=== PATIENT | female | born 1975 | race Caucasian/White ===

== ENCOUNTER → 2017-03-18 | Outpatient (REF) | payer OTHER, BC | LOC: M SFHCWAGY 11:21 | PROVIDERS: ATTEND Nurse Practitioner Women's Health | DX: Z12.4 Encounter for screening for malignant neoplasm of cervix (principal); Z12.39 Encounter for other screening for malignant neoplasm of breast ==

== ENCOUNTER → 2017-03-18 | Outpatient (CLI) | payer OTHER, BC ==
--- NOTE | 2017-03-18 12:21 | REPMRS ---
Patient History The patient states she had a clinical breast exam in 02/2017. No known family history of cancer. Digital Woman Screen Mammo: March 18, 2017 - Exam #: [id number] Bilateral CC and MLO view(s) were taken. Technologist: Bridgett Mast, Technologist Prior study comparison: January 15, 2016, digital woman screen mammo performed at [facility]. November 22, 2014, digital woman screen mammo performed at [facility] to [facility]. FINDINGS: There are scattered fibroglandular densities. There has been no change in the appearance of the mammogram from the prior studies. There is a mild amount of residual fibroglandular tissue which is fairly symmetric. There is no interval development of dominant mass, architectural distortion, or clustered microcalcification suggestive of malignancy. ASSESSMENT: BI-RADS/ACR category 1 mammogram. Negative. Recommendation Routine screening mammogram in 1 year (for women over age 40). This mammogram was interpreted with the aid of an FDA-approved computer-aided dectection system. Electronically Signed By: Mendoza Barroso MD 03/18/17 [id number]
== END ==
LOC: M WHC 11:19
PROVIDERS: ATTEND Nurse Practitioner Women's Health
DX: Z12.31 Encounter for screening mammogram for malignant neoplasm of breast (principal)

== ENCOUNTER → 2017-08-27 | Outpatient (REF) | payer OTHER, BC | LOC: M SFHCWAGY 13:21 | PROVIDERS: ATTEND Family Medicine | DX: Z11.3 Encounter for screening for infections with a predominantly sexual mode of transmission (principal) ==

== ENCOUNTER → 2018-02-14 | Outpatient (CLI) | payer OTHER ==
[2018-02-14 08:52] LABS: ALBUMIN 3.5 GM/DL (3.2-5.2); ALBUMIN/GLOBULIN RATIO 1.09 (1.00-1.93); ALKALINE PHOSPHATASE 46 U/L (45-117); ALT/SGPT 23 U/L (12-78); ANION GAP 6 MEQ/L (8-16); AST/SGOT 14 U/L (7-37); BILIRUBIN,TOTAL 0.6 MG/DL (0.2-1.0); BLOOD UREA NITROGEN 10 MG/DL (7-18); CALCIUM LEVEL 8.5 MG/DL (8.5-10.1); CARBON DIOXIDE LEVEL 27 MEQ/L (21-32); CHLORIDE LEVEL 109 MEQ/L (98-107); CHOLESTEROL LEVEL 189 MG/DL (<200); CHOLESTEROL RISK RATIO 3.315 (<5); FREE T4 0.93 NG/DL (0.76-1.46); GLOMERULAR FILTRATION RATE > 60.0 (>58); GLUCOSE, FASTING 90 MG/DL (70-100); HDL CHOLESTEROL 57 MG/DL (>40); LDL CHOLESTEROL 104.4 MG/DL (<100); NON-HDL-C 132 MG/DL; POTASSIUM SERUM 4.6 MEQ/L (3.5-5.1); SODIUM LEVEL 142 MEQ/L (136-145); TOTAL PROTEIN 6.7 GM/DL (6.4-8.2); TRIGLYCERIDES LEVEL 138 MG/DL (<150)
[2018-02-14 10:56] LABS: ESTIMATED AVERAGE GLUCOSE 108 MG/DL (60-110); HEMOGLOBIN A1c 5.4 %
== END ==
LOC: M LAB 07:50
DX: Z83.3 Family history of diabetes mellitus (principal); R63.5 Abnormal weight gain
CPT/HCPCS: 84443

== ENCOUNTER → 2018-06-28 | Outpatient (REF) | payer OTHER | LOC: M LAB REF 13:20 | DX: J02.9 Acute pharyngitis, unspecified (principal) ==

== ENCOUNTER 2018-11-05 13:16 | Emergency (ER) | payer OTHER ==
[~2018-11-05] VITALS: Ht 162.6 cm; Wt 94.5 kg
[2018-11-05] MEDS ORDERED: ACET500T15 PO (13:37)
[2018-11-05 17:00] VITALS: BP 138/84
[2018-11-05 18:47] LABS: CHLAMYDIA DNA AMPLIFICATION NEGATIVE (NEGATIVE); GC DNA AMPLIFICATION NEGATIVE (NEGATIVE)
--- NOTE | 2018-11-06 09:01 | REP ---
PELVIC ULTRASOUND: Real-time sonographic evaluation of the pelvis performed utilizing transabdominal and endovaginal technique. Bladder measures 10.3 x 3.7 x 9.2 cm. Uterus measures 9.0 x 5.2 x 6.0 cm. There is an anterior fibroid 2.4 x 2.3 x 3.1 cm. Endometrial thickness is 17 mm. Uterus is retroverted. There is a complex nabothian cyst in the cervix which measures 7 mm. Right ovary measures 4.3 x 1.6 x 2.0 cm and left ovary 3.3 x 1.4 x 1.8 cm. There is a complex dominant follicle in the right ovary 1.4 cm in diameter. There is a small amount of free fluid. There is no torsion of either ovary with duplex Doppler evaluation. IMPRESSION: Anterior uterine fibroid 3.1 cm in maximum diameter. Complex hemorrhagic dominant follicle right ovary 1.4 cm. No torsion. Small amount of free fluid. Electronically Signed by Mendoza Barroso MD 11/06/2018 06:50 P
== END 2018-11-05 17:01 | disposition home or self-care (01) ==
LOC: M ED 13:16
DX: D25.9 Leiomyoma of uterus, unspecified (principal); N83.01 Follicular cyst of right ovary; Z87.42 Personal history of other diseases of the female genital tract; Z87.891 Personal history of nicotine dependence

== ENCOUNTER → 2019-01-04 | Outpatient (CLI) | payer OTHER ==
[~2019-01-04] MED LIST: ACET500T15 PO
--- NOTE | 2019-01-04 16:04 | REPMRS ---
Patient History The patient states she had a clinical breast exam in 12/2018. No known family history of cancer. No Hormone Replacement Therapy Digital Woman Screen Mammo: January 04, 2019 - Exam #: [id number] Bilateral CC and MLO view(s) were taken. Technologist: Bridgett Mast, Technologist Prior study comparison: March 18, 2017, digital woman screen mammo performed at [facility]. January 15, 2016, digital woman screen mammo performed at [facility]. November 22, 2014, digital woman screen mammo performed at [facility]. FINDINGS: There are scattered fibroglandular densities. There has been no change in the appearance of the mammogram from the prior studies. There is a mild amount of scattered fibroglandular density which is fairly symmetric. There is no interval development of dominant mass, architectural distortion, or clustered microcalcification suggestive of malignancy. 3-D tomosynthesis shows no additional findings. Assessment: BI-RADS/ACR category 1 mammogram. Negative Mammogram. Recommendation Routine screening mammogram of both breasts in 1 year (for women over age 40). This patient's Lifetime Breast Cancer RIsk is estimated at 12.2 %. This mammogram was interpreted with the aid of an FDA-approved computer-aided dectection system. Electronically Signed By: Steven Garces MD 01/04/19 0100
== END ==
LOC: M WHC 14:11
PROVIDERS: ATTEND Nurse Practitioner Women's Health
DX: Z12.31 Encounter for screening mammogram for malignant neoplasm of breast (principal)

== ENCOUNTER 2019-05-22 09:43 | Day surgery (SDC) | payer OTHER ==
[~2019-05-22] VITALS: Ht 162.6 cm; Wt 94.5 kg
[2019-05-22] MEDS ORDERED: ZYRTTAB8 PO (09:50)
[2019-05-22] MEDS ORDERED: NS 1,000 ML IV ONE (10:15)
[2019-05-22] MEDS ORDERED: ONDANSETRON 4MG/2ML VIAL (J2405) IV ONE (10:30)
[2019-05-22] MEDS ORDERED: KETOROLAC 30 MG/ML VIAL (J1885) IV ONE (10:30)
[2019-05-22 10:38] LABS: BASO % 0.3 % (0.0-1.0); EOS # 0.1 10^3/uL (0.0-0.50); EOS % 0.8 % (0.0-3.0); HEMATOCRIT 42.4 % (36.0-47.0); HEMOGLOBIN 14.5 g/dl (12.0-15.5); MEAN CORPUSCULAR HEMOGLOBIN 32.3 pg (27.0-33.0); MEAN CORPUSCULAR HGB CONC 34.2 g/dl (32.0-36.5); MEAN CORPUSCULAR VOLUME 94.4 fl (80.0-96.0); MONO # 0.5 10^3/uL (0.0-0.8); MONO % 4.5 % (0.0-5.0); NEUTROPHILS # 8.5 10^3/uL (1.8-7.7); PLATELET COUNT, AUTOMATED 179 10^3/uL (150-450); RED BLOOD COUNT 4.49 10^6/uL (4.00-5.40); WHITE BLOOD COUNT 10.1 10^3/uL (4.0-10.0)
[2019-05-22 11:10] LABS: ALT/SGPT 17 U/L (12-78); BILIRUBIN,DIRECT 0.2 MG/DL (0.0-0.2); BILIRUBIN,TOTAL 0.5 MG/DL (0.2-1.0); BLOOD UREA NITROGEN 15 MG/DL (7-18); CALCIUM LEVEL 9.3 MG/DL (8.5-10.1); CARBON DIOXIDE LEVEL 25 MEQ/L (21-32); CHLORIDE LEVEL 105 MEQ/L (98-107); CREATININE FOR GFR 0.91 MG/DL (0.55-1.30); GLOMERULAR FILTRATION RATE > 60.0 (>58); GLUCOSE, FASTING 101 MG/DL (70-100); LIPASE 102 U/L (73-393); POTASSIUM SERUM 4.3 MEQ/L (3.5-5.1); SODIUM LEVEL 139 MEQ/L (136-145); TOTAL PROTEIN 7.2 GM/DL (6.4-8.2)
[2019-05-22] MEDS ORDERED: NS 1,000 ML IV SCH (13:00)
[2019-05-22] MEDS ORDERED: ceFAZolin 2 GM/D5W 50 ML IV BAG (J0690 PER 500MG) As Ordered ONE (18:26)
[2019-05-22] MEDS ORDERED: fentaNYL 250 MCG/5 ML INJECTION (J3010) As Ordered ONE (18:36)
[2019-05-22] MEDS ORDERED: MIDAZOLAM INJ 2 MG/2 ML VIAL (J2250) As Ordered ONE (18:37)
[2019-05-22] MEDS ORDERED: LIDOCAINE 2% INJ 100 MG/5 ML SDV (FOR ANES.) As Ordered ONE ×3 (18:39→20:16)
[2019-05-22] MEDS ORDERED: PROPOFOL 200 MG/20 ML VIAL As Ordered ONE (18:39)
[2019-05-22] MEDS ORDERED: ROCURONIUM BROMIDE 50 MG/5 ML VIAL As Ordered ONE ×2 (18:40→20:16)
--- NOTE | 2019-05-22 18:44 | HPEPDOC ---
General Surgery H&P Date of Admission May 22, 2019 Attending Physician: ERMIAS GRIDER MD History and Physical CHIEF COMPLAINT: Right groin bulge with pain HISTORY OF PRESENT ILLNESS: Patient is a relatively healthy 43-year-old male who is known for about a past 6 months that she has a femoral hernia and intermitt ently bulges out on her right groin. Most the time she was just rest and lay down and this would spontaneously reduced back. In between his episodes patient feels normal. This episode started early this morning while she was ready for work. She felt the bulge, once more after minimal effort and this would not reduce back in. This was accompanied by pain in the groin area and a couple episodes of vomiting. She then presented herself to the emergency room. While in the ER patient felt better with the bulging decreasing in size but remaining there despite laying down and resting. She denies any further nausea, vomiting, abdominal distention. At the time that I saw her the bulging remains but she reports that the discomfort has improved. No prior episodes of repair. ALLERGIES: Please see below. HOME MEDICATIONS: Please see below. PAST MEDICAL HISTORY: 1. Asthma PAST SURGICAL HISTORY: 1. Laparoscopic cholecystectomy PERSONAL/SOCIAL HISTORY: Denies smoking, alcohol use, or recreational drug use. REVIEW OF SYSTEMS: GENERAL: Patient on her usual state of health prior to the episodes starting this morning. HEENT: Denies blurred vision and double vision. Denies ear symptoms. Denies hoarseness. NECK: Denies any neck pain. CARDIOVASCULAR: Denies chest pain and palpitations. MUSCULOSKELETAL: Denies arthralgias, back pain and thrombophlebitis. SKIN: Denies rash. NEUROLOGIC: Denies headache, stroke and transient ischemic attack. PSYCHIATRIC: Denies anxiety and depression. ENDOCRINE: Denies thyroid disease. HEMATOLOGY/ONCOLOGY: Denies any bleeding or clotting disorder. HEART: Denies any chest pains, palpitations, paroxysmal dyspnea, orthopnea. PULMONARY: Denies chronic cough, dyspnea and wheezing. GASTROINTESTINAL: Denies rectal bleeding, family history of colon cancer, const ipation, diarrhea, dysphagia, heartburn and jaundice. GENITOURINARY: Denies dysuria, frequency, hematuria and nocturia. ENDOCRINE: Denies polydipsia, polyphagia, polyuria, heat or cold intolerance. INFECTIOUS: Denies any recent upper respiratory tract infection, UTI, need for use of antibiotics. NUTRITION: Reports good appetite. PHYSICAL EXAMINATION: VITAL SIGNS: Please see below. GENERAL APPEARANCE: Minimally uncomfortable with movement but uncomfortable laying down flat in bed. She was able to sit up on the bed with minimal discomfort.. Awake, alert, oriented. HEENT: Normocephalic, atraumatic. [place] palpebral conjunctivae. Anicteric sclerae. Lips moist. CHEST: No chest wall abnormalities. Normal respiratory motion/effort. NECK: Supple. No thyromegaly. No lymphadenopathies. LUNGS: Lung sounds are clear to auscultation bilaterally. No wheezing appreciated. HEART: No chest wall abnormalities. Heart rate and rhythm are regular with no murmurs. ABDOMEN: Abdomen is obese, soft, nondistended. She has a non-small bulging towards the lower edge of the right groin crease at the line of the inguinal crease on the medial side consistent with a femoral hernia. The herniating component is not reducible. The overlying skin does not show any erythema. Subcutaneous tissue does not show any gross induration or swelling. Patient is minimally uncomfortable with manipulation.. SKIN: Warm, moist. EXTREMITIES: Extremities have no deformities. No edema identified. NEUROLOGICAL: . ANCILLARIES: . LABORATORY DATA: Please see below. MICROBIOLOGY: Please see below. IMAGING: Pelvic ultrasound Right femoral hernia containing a loop of bowel IMPRESSION AND PLAN: Incarcerated right femoral hernia Patient reports improvement but the bulging still remains. On examination she does have a right femoral hernia in this is not reducible. She is minimally tender on palpation. There are no overlying skin changes nor signs of subcutaneous swelling outpatient looks only minimally uncomfortable thus a think this may be incarcerated though no signs of strangulation at this time. Given that there is a piece of bowel in this is a femoral hernia, high likelihood that there is a narrow neck and reduced may escalate into strangulation this I recommend emergent repair of the hernia in reduction of the herniating bowel. I discussed with her different options for repair. Given that there is involvement of bowel, and recommend performing this laparoscopically. I have inquired in the operating room for the availability of the da Hiren robot and since this is available we will use his stool which I think would provide a superior repair via transabdominal preperitoneal approach. Placement of mesh will depend upon whether we need to resect the involved bowel or not. If bowel is resected, he may need to hold off lasing the mesh and either perform a primary repair or do a temporary repair and planned for a more definite repair when she is fully recovered in a few weeks. Consent was obtained from the patient after full discussion of risks and benefits of performing a laparoscopic femoral hernia repair. Vital Signs Vital Signs Date Time Temp Pulse Resp B/P (MAP) Pulse Ox O2 Delivery O2 Flow Rate FiO2 05/22/19 17:06 97.8 60 18 142/82 (102) 98 Room Air Laboratory Data Labs 24H Laboratory Tests 2 05/22/19 10:24: Immature Granulocyte % (Auto) 0.4, White Blood Count 10.1H, Red Blood Count 4.49, Hemoglobin 14.5, Hematocrit 42.4, Mean Corpuscular Volume 94.4, Mean Corpuscular Hemoglobin 32.3, Mean Corpuscular Hemoglobin Concent 34.2, Red Cell Distribution Width 12.2, Platelet Count 179, Neutrophils (%) (Auto) 84.0H, Lymphocytes (%) (Auto) 10.0L, Monocytes (%) (Auto) 4.5, Eosinophils (%) (Auto) 0.8, Basophils (%) (Auto) 0.3, Neutrophils # (Auto) 8.5H, Lymphocytes # (Auto) 1.0L, Monocytes # (Auto) 0.5, Eosinophils # (Auto) 0.1, Basophils # (Auto) 0.0, Nucleated Red Blood Cells % (auto) 0.0, Urine Color YELLOW, Urine Appearance HAZY, Urine pH 6.0, Urine Specific [place] 1.019, Urine Protein NEGATIVE, Urine Glucose (UA) NEGATIVE, Urine Ketones NEGATIVE, Urine Blood NEGATIVE, Urine Nitrite NEGATIVE, Urine Bilirubin NEGATIVE, Urine Urobilinogen 0.2, Urine Leukocyte Esterase TRACEH, Urine WBC (Auto) 3, Urine RBC (Auto) 0, Urine Hyaline Casts (Auto) 0, Urine Bacteria (Auto) 1+H, Urine Squamous Epithelial Cells 3, Urine Sperm (Auto) , Anion Gap 9, Glomerular Filtration Rate > 60.0, Calcium Level 9.3, Aspartate Amino Transf (AST/SGOT) 10, Alanine Aminotransferase (AL T/SGPT) 17, Alkaline Phosphatase 55, Total Bilirubin 0.5, Direct Bilirubin 0.2, Total Protein 7.2, Albumin 4.0, Albumin/Globulin Ratio 1.25, Lipase 102 05/22/19 10:34: POC Beta HCG, Quantitative < 5.0 CBC/BMP Laboratory Tests 05/22/19 10:24 Red Blood Count 4.49, Mean Corpuscular Volume 94.4, Mean Corpuscular Hemoglobin 32.3, Mean Corpuscular Hemoglobin Concent 34.2, Red Cell Distribution Width 12.2, Neutrophils (%) (Auto) 84.0 H, Lymphocytes (%) (Auto) 10.0 L, Monocytes (%) (Auto) 4.5, Eosinophils (%) (Auto) 0.8, Basophils (%) (Auto) 0.3, Neutrophils # (Auto) 8.5 H, Lymphocytes # (Auto) 1.0 L, Monocytes # (Auto) 0.5, Eosinophils # (Auto) 0.1, Basophils # (Auto) 0.0 Microbiology Microbiology 05/22/19 Urine Culture, Received Pending Home Medications Miscellaneous Medications Cetirizine HCl/Pseudoephedrine (Zyrtec-D Tablet) 1 Each Tab.er.12h, 1 TAB PO, (Reported) Allergies Coded Allergies: No Known Allergies (Unverified , 05/22/19) A-FIB/CHADSVASC A-FIB History Current/History of A-Fib/PAF?: No Current PO Anticoag Therapy: No ERMIAS GRIDER MD May 22, 2019 18:44
[2019-05-22] MEDS ORDERED: LIDOCAINE 1% SDV INJ 30 ML VIAL As Ordered ONE (18:48)
[2019-05-22] MEDS ORDERED: BUPIVACAINE HCL 0.25% 30 ML VIAL As Ordered ONE (18:48)
[2019-05-22] MEDS ORDERED: dexameTHASONE 4 MG/ML 1ML VIAL (J1100) As Ordered ONE (19:35)
[2019-05-22] MEDS ORDERED: KETAMINE HCL 200 MG/20 ML VIAL As Ordered ONE (20:00)
[2019-05-22] MEDS ORDERED: ACETAMINOPHEN 1000MG 100ML IV BTL (OFIRMEV) (J0131 PER 10MG) As Ordered ONE (20:17)
[2019-05-22] MEDS ORDERED: SUGAMMADEX SODIUM 500 MG/5 ML VIAL (BRIDION) As Ordered ONE (20:24)
[2019-05-22] MEDS ORDERED: ONDANSETRON 4MG/2ML VIAL (J2405) As Ordered ONE (20:24)
[2019-05-22] MEDS: LR 1,000 ML IV SCH ×2 (21:40→22:34)
[2019-05-22] MEDS ORDERED: fentaNYL 100 MCG/2 ML INJECTION (J3010) IV PRN (22:00)
[2019-05-22] MEDS ORDERED: PERCOCET 5MG/325MG TAB PO PRN (22:00)
[2019-05-22] MEDS ORDERED: HYDROMORPHONE HCL 0.5 MG/ 0.5 ML SYRINGE (J1170 PER 1) IV PRN (22:00)
[2019-05-22] MEDS ORDERED: ONDANSETRON 4MG/2ML VIAL (J2405) IV PRN (22:00)
[2019-05-22 22:37] VITALS: BP 135/83
[2019-05-22 23:13] VITALS: BP 135/84
[2019-05-23 00:35] VITALS: BP 124/80
[2019-05-23] MEDS: LR 1,000 ML IV SCH ×2 (00:36→07:48)
[2019-05-23] MEDS: AMPICILLIN SOD/SULBACTAM SOD 3 GM in D5W MINI-BAG PLUS 100 ML IV SCH ×2 (00:36→06:20)
[2019-05-23 01:22] VITALS: BP 136/85
[2019-05-23 02:15] VITALS: BP 136/84
[2019-05-23 03:15] VITALS: BP 134/82
--- NOTE | 2019-05-23 06:10 | ROOPDOC ---
[facility] Report Of Operation Report of Operation DATE OF PROCEDURE: 05/22/19 PREPROCEDURE DIAGNOSES: incarcerated right femoral hernia. POSTPROCEDURE DIAGNOSES: incarcerated right femoral hernia. PROCEDURE: Robotic assisted laparoscopic repair of right femoral hernia. intraoperative evaluation of bowel perfusion with ICG, firefly. SURGEON: Rocky Samano MD CONCRETE SMOOTHER: ANESTHESIA: General Anesthesia. ESTIMATED BLOOD LOSS: Approximately 20 mL. COMPLICATIONS: none. PROCEDURE NOTE: The incarcerated bowel has self reduced. I think even before she was brought to the OR. There was evident serosal erythema. I watched it for about 5 minutes and used ICG to determine viability. It lit up well with firefly, and after observation was showing peristalsis.. DESCRIPTION OF PROCEDURE: Patient received Unasyn 3 gm IV preoperatively for wound prophylaxis, possible need for bowel resection. Patient was brought to the operating room, placed supine on the operating table. Compression boots placed in both lower extremities for DVT prophylaxis. After adequate general anesthesia started, A houser catheter placed without difficulty. His abdomen and groin/pelvic area then prepped and draped in the usual sterile fashion. We paused for a surgical timeout using both pre-incision safety checklist to verify correct patient, procedure site and additional clinical information prior to beginning the procedure. Entry to the abdomen done through a small incision a couple of cms above umbilical skin cleft. A Veress needle is inserted on a controlled fashion. CO2 insufflation started to pressure 15 mmHg. Using the same incision a 5 mm Visiport was then placed under direct vision of laparoscope. The insertion site was inspected for injury and none was found. Patient was then positioned on 10 Trendelenburg position with the symptomatic (right) side tilted upwards for adequate view of the hernia defect. 2 working ports placed to the right and left of the abdomen along the same line. The Xi da Hiren robot tower was positioned and the trochars docked onto the robot. 13 years we will bring 1% versus again as she is a lateral to what she is a is a week is as he is now radiating to the procedure is as he is admitted is I then unscrubbed and took control of the camera and the laparoscopic instruments at the surgeon's console. I used a Forced Bipolar is forceps with bipolar cautery on the left arm and A harsha-cut laparoscopic scissor with unipolar cautery in right arm. On Diagnostic laparoscopy, the bowel was incarcerated in the femoral hernia was noted free and apparently self reduced. I think this happened even before the surgery as she has reported improvement of her discomfort and I saw her in the emergency room. The bowel was noted to be bruised, mildly swollen. There is roughly about 8-10 cm piece of bowel that looked like this. Rest of the bowel appears pink and healthy. The antimesenteric portion appears bruised but the mesenteric portion is healthy in appearance. I used ICG and had anesthesia give him 5 mg or 2 mL of ICG intravenously. By using firefly and noted adequate perfusion going into the bruised portion of the bowel. After a couple of minutes of observation, this portion is also peristalsing. There is a small amount of serous sanguinous fluid in the pelvis. There is a small opening to the femoral canal on the right side with swollen preperitoneal tissue surrounding it. The peritoneum was opened up roughly about 5 cm above the internal opening of the inguinal hernia starting at the medial umbilical ligament going laterally towards the level of the anterior superior iliac spine. This was then dissected mostly bluntly away from the abdominal wall staying at the preperitoneal plane and posterior rectus plane medially. The round ligament at the right side was parietalized. On approaching the bulky and swollen preperitoneal tissue surrounding the femoral hernia and this was reduced away from the femoral opening. The loose areolar tissue around the area was also reduced back to the preperitoneal plane. Upon reduction of the peritoneal lining as well as the preperitoneal fat tissue there was some egress of serous fluid from the femoral canal. We extended the preperitoneal dissection beyond the midline as well as deep into the pelvis close to the opening of the obturator canal to be able to get adequate mesh overlap inferiorly. The space behind the bladder as well as the space of [place] was dissected fully and the intervening peritoneal bridge was also taken down. Once an adequate preperitoneal space was dissected, a check for hemostasis. I came back again to the small bowel and again had anesthesia inject her 2 mL of ICG. The bowels appear pinker now and clearly is peristalsing. There was no worsening of the bruising at the antimesenteric wall and clearly no necrosis or tanning of the small bowel. I chose a Parietex [employer] self fixating mesh (15 x 10 cm). This was folded and placed in the preperitoneal plane centered just medial to the inferior epigastric vessels and placed much lower 12 adequate inferior overlap to cover the femoral hernia opening. This was flattened against the abdominal wall and the pubic bone. After careful placement of the mesh, the peritoneal opening was then closed with a running suture of 2-0V LOC suture. As the hernia sac was long and redundant I incorporated the hernia sac into the closure of the peritoneum. I then surveyed the abdomen and pelvis for any signs of injury. Once satisfied I scrubbed back in. The instruments were removed. The abdomen was deflated. All ports were removed. The skin incisions were closed with 4-0 Monocryl in subcuticular fashion. The incisions were covered with Dermabond. The port sites were again infiltrated with local anesthesia. An ilioinguinal nerve block was also performed. Patient was promptly awakened, extubated and brought to the recovery room stable ROCKY SAMANO MD May 23, 2019 06:10
--- NOTE | 2019-05-23 06:14 | REP ---
RIGHT INGUINAL ULTRASOUND: Real-time sonographic evaluation of the right inguinal region performed. There is a right femoral hernia. The defect is approximately 2 cm in diameter. The hernia sac contains peristalsing bowel as well as mild to moderate fluid. It is not reducible. Electronically Signed by Mendoza Barroso MD 05/23/2019 11:48 P
[2019-05-23 06:16] LABS: BASO % 0.1 % (0.0-1.0); HEMATOCRIT 36.9 % (36.0-47.0); HEMOGLOBIN 12.7 g/dl (12.0-15.5); LYMPH # 0.7 10^3/uL (1.5-4.5); LYMPH % 7.3 % (24.0-44.0); MEAN CORPUSCULAR HEMOGLOBIN 31.8 pg (27.0-33.0); MEAN CORPUSCULAR HGB CONC 34.4 g/dl (32.0-36.5); MEAN CORPUSCULAR VOLUME 92.3 fl (80.0-96.0); MONO # 0.2 10^3/uL (0.0-0.8); MONO % 2.6 % (0.0-5.0); NEUTROPHILS # 8.4 10^3/uL (1.8-7.7); NEUTROPHILS % 89.7 % (36.0-66.0); PLATELET COUNT, AUTOMATED 172 10^3/uL (150-450); WHITE BLOOD COUNT 9.4 10^3/uL (4.0-10.0)
[2019-05-23 06:44] LABS: BLOOD UREA NITROGEN 7 MG/DL (7-18); CALCIUM LEVEL 8.7 MG/DL (8.5-10.1); CARBON DIOXIDE LEVEL 23 MEQ/L (21-32); CHLORIDE LEVEL 111 MEQ/L (98-107); CREATININE FOR GFR 0.71 MG/DL (0.55-1.30); GLOMERULAR FILTRATION RATE > 60.0 (>58); GLUCOSE, FASTING 137 MG/DL (70-100); POTASSIUM SERUM 4.3 MEQ/L (3.5-5.1); SODIUM LEVEL 138 MEQ/L (136-145)
[2019-05-23 07:17] VITALS: BP 129/79
--- NOTE | 2019-05-23 10:31 | IPNPDOC ---
Subjective General Date/Time Seen The patient was seen on 05/23/19 at 10:29. Subject Chief Complaint/History The patient is a 43-year-old female admitted with a reason for visit of Incarcerated Rt Femoral Hernia. Pt had emergent laparoscopic femoral hernia repair last night. Bowels were in the defect but actually self reduced prior to the surgery. She reports being comfortable with minimal discomfort, No nausea, bloating. She is voiding well spontaneously Current Medications Current Medications Current Medications Medications (Trade) Dose Ordered Sig/Mei Route PRN Reason Start Time Stop Time Status Last Admin Dose Admin Ampicillin Sodium/ Sulbactam Sodium 3 gm/Dextrose 100 ml @ 200 mls/hr Q6H IV 05/23/19 00:00 05/23/19 06:20 Fentanyl Citrate (Sublimaze) 25 mcg Q5MP PRN IV MODERATE PAIN (PS 4-7) 05/22/19 22:00 05/22/19 22:59 DC Hydromorphone HCl (Dilaudid) 0.2 mg Q5MP PRN IV MODERATE/SEVERE PAIN (PS 5-10) 05/22/19 22:00 05/22/19 22:59 DC Lactated Ringer's 1,000 ml @ 100 mls/hr Q10H IV 05/22/19 21:48 05/23/19 00:36 Lactated Ringer's 1,000 ml @ 100 mls/hr Q10H IV 05/22/19 22:00 05/22/19 22:59 DC 05/22/19 21:40 Ondansetron HCl (ZOFRAN INJection) 4 mg Q4HP PRN IV NAUSEA OR VOMITING 05/22/19 22:00 05/22/19 22:59 DC Oxycodone/ Acetaminophen (Percocet 5mg/ 325mg Tablet) 1 tab ASDIRECTED PRN PO MILD/MODERATE PAIN (PS 1-7) 05/22/19 22:00 05/22/19 22:59 DC Sodium Chloride 1,000 ml @ 100 mls/hr Q10H IV 05/22/19 13:00 05/22/19 21:52 DC 05/22/19 13:00 Allergies Coded Allergies: No Known Allergies (Unverified , 05/22/19) Objective Physical Examination Examination GENERAL APPEARANCE:appears comfortable. SKIN: Warm and moist. HEENT: Normocephalic, atraumatic. [place] palpebral conjunctiva, anicteric sclerae. Lips and mucosa appear moist. NECK: Supple, no thyromegaly. No obvious jugular venous distention. LUNGS: Clear to auscultation bilaterally. No wheezing appreciated. HEART: No chest wall abnormalities. Regular rate and rhythm with no murmurs appreciated. ABDOMEN: Abdomen is mildly obese, soft, nondistended. Laparoscopic port sites clean, dry, intact. Right groin with no noticeable bruising, hematoma or swellig EXTREMITIES: Extremities have no deformities. No edema identified. Vital Signs Vital Signs Date Time Temp Pulse Resp B/P (MAP) Pulse Ox O2 Delivery O2 Flow Rate FiO2 05/23/19 07:17 97.9 75 16 129/79 (96) 96 05/22/19 21:50 2 05/22/19 17:06 Room Air I&Os I&O- Last 24 Hours up to 6 AM 05/23/19 05:59 Intake Total 3760 ml Output Total 1370 ml Balance 2390 ml Laboratory Data Labs 24H Laboratory Tests 2 05/22/19 10:34: POC Beta HCG, Quantitative < 5.0 05/23/19 05:46: Immature Granulocyte % (Auto) 0.3, White Blood Count 9.4, Red Blood Count 4.00, Hemoglobin 12.7, Hematocrit 36.9, Mean Corpuscular Volume 92.3, Mean Corpuscular Hemoglobin 31.8, Mean Corpuscular Hemoglobin Concent 34.4, Red Cell Distribution Width 12.2, Platelet Count 172, Neutrophils (%) (Auto) 89.7H, Lymphocytes (%) (Auto) 7.3L, Monocytes (%) (Auto) 2.6, Eosinophils (%) (Auto) 0.0, Basophils (%) (Auto) 0.1, Neutrophils # (Auto) 8.4H, Lymphocytes # (Auto) 0.7L, Monocytes # (Auto) 0.2, Eosinophils # (Auto) 0.0, Basophils # (Auto) 0.0, Nucleated Red Blood Cells % (auto) 0.0, Anion Gap 4L, Glomerular Filtration Rate > 60.0, Blood Urea Nitrogen 7#, Creatinine 0.71, Sodium Level 138, Potassium Level 4.3, Chloride Level 111H, Carbon Dioxide Level 23, Calcium Level 8.7 CBC/BMP Laboratory Tests 05/23/19 05:46 Red Blood Count 4.00, Mean Corpuscular Volume 92.3, Mean Corpuscular Hemoglobin 31.8, Mean Corpuscular Hemoglobin Concent 34.4, Red Cell Distribution Width 12.2, Neutrophils (%) (Auto) 89.7 H, Lymphocytes (%) (Auto) 7.3 L, Monocytes (%) (Auto) 2.6, Eosinophils (%) (Auto) 0.0, Basophils (%) (Auto) 0.1, Neutrophils # (Auto) 8.4 H, Lymphocytes # (Auto) 0.7 L, Monocytes # (Auto) 0.2, Eosinophils # (Auto) 0.0, Basophils # (Auto) 0.0, Calcium Level 8.7 Microbiology Microbiology 05/22/19 Urine Culture - Final, Complete Impression POD1 RA laparoscopic repair of incarcerated femoral hernia doing well will discharge home on prn pain meds and 7 days abx course for the bowel involvement light activity x 1 week, may return to work if comfortable next week (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
[2019-05-23] MEDS ORDERED: OXYC1TAB23 PO (10:35)
[2019-05-23] MEDS ORDERED: LEVA1TAB2 PO (10:35)
[2019-05-23 11:11] VITALS: BP 133/79
== END 2019-05-23 12:18 | disposition home or self-care (01) ==
LOC: M ED 09:43 → M SDC 09:44 → M MS5PR 22:30 → M SDC 05-23 12:18
PROVIDERS: ATTEND Surgery
DX: K41.30 Unilateral femoral hernia, with obstruction, without gangrene, not specified as recurrent (principal); J45.909 Unspecified asthma, uncomplicated; Z79.899 Other long term (current) drug therapy
CPT/HCPCS: 36415; 49659; 76857; 80048; 80076; 81001; 83690; 84702; 85025; 87086; 96361; 96374; 96375; 96376; 99284; C1781; J0131; J0690; J1100; J1885; J2250; J2405; J3010

== ENCOUNTER → 2019-11-10 | Outpatient (CLI) | payer OTHER ==
[~2019-11-10] MED LIST changes: +LEVA1TAB2 PO; +OXYC1TAB23 PO; +ZYRTTAB8 PO
[2019-11-10 08:26] LABS: BASO # 0.1 10^3/uL (0.0-0.2); EOS # 0.2 10^3/uL (0.0-0.5); EOS % 2.5 % (0.0-3.0); HEMATOCRIT 38.8 % (36.0-47.0); HEMOGLOBIN 13.2 g/dl (12.0-15.5); LYMPH % 29.6 % (24.0-44.0); MEAN CORPUSCULAR HEMOGLOBIN 32.4 pg (27.0-33.0); MEAN CORPUSCULAR VOLUME 95.1 fl (80.0-96.0); MONO # 0.5 10^3/uL (0.0-0.8); MONO % 7.9 % (0.0-5.0); NEUTROPHILS # 3.9 10^3/uL (1.5-8.5); NEUTROPHILS % 58.4 % (36.0-66.0); PLATELET COUNT, AUTOMATED 190 10^3/uL (150-450); RED BLOOD COUNT 4.08 10^6/uL (4.00-5.40); WHITE BLOOD COUNT 6.8 10^3/uL (4.0-10.0)
[2019-11-10 08:54] LABS: ALBUMIN 3.7 GM/DL (3.2-5.2); ALT/SGPT 25 U/L (12-78); BILIRUBIN,TOTAL 0.2 MG/DL (0.2-1.0); BLOOD UREA NITROGEN 10 MG/DL (7-18); CALCIUM LEVEL 8.7 MG/DL (8.5-10.1); CARBON DIOXIDE LEVEL 28 MEQ/L (21-32); CHLORIDE LEVEL 111 MEQ/L (98-107); CHOLESTEROL LEVEL 183 MG/DL (<200); CHOLESTEROL RISK RATIO 3.155 (<5); CREATININE FOR GFR 0.89 MG/DL (0.55-1.30); GLOMERULAR FILTRATION RATE > 60.0 (>58); GLUCOSE, FASTING 86 MG/DL (70-100); HDL CHOLESTEROL 58 MG/DL (>40); LDL CHOLESTEROL 105 MG/DL (<100); NON-HDL-C 125 MG/DL; POTASSIUM SERUM 4.4 MEQ/L (3.5-5.1); SODIUM LEVEL 143 MEQ/L (136-145); TOTAL PROTEIN 6.8 GM/DL (6.4-8.2); TRIGLYCERIDES LEVEL 99 MG/DL (<150)
== END ==
LOC: M LAB 07:40
PROVIDERS: ATTEND Nurse Practitioner Family
DX: Z00.00 Encounter for general adult medical examination without abnormal findings (principal); R63.5 Abnormal weight gain

== ENCOUNTER → 2021-02-07 | Outpatient (CLI) | payer BC ==
[2021-02-07 12:27] LABS: ALBUMIN 3.7 GM/DL (3.2-5.2); ALT/SGPT 19 U/L (12-78); BILIRUBIN,TOTAL 0.5 MG/DL (0.2-1.0); BLOOD UREA NITROGEN 15 MG/DL (7-18); CALCIUM LEVEL 9.4 MG/DL (8.5-10.1); CARBON DIOXIDE LEVEL 27 MEQ/L (21-32); CHLORIDE LEVEL 106 MEQ/L (98-107); CHOLESTEROL LEVEL 235 MG/DL (<200); CHOLESTEROL RISK RATIO 3.916 (<5); CREATININE FOR GFR 0.82 MG/DL (0.55-1.30); FREE T4 0.93 NG/DL (0.76-1.46); GLOMERULAR FILTRATION RATE > 60.0 (>58); GLUCOSE, FASTING 89 MG/DL (70-100); HDL CHOLESTEROL 60 MG/DL (>40); LDL CHOLESTEROL 145 MG/DL (<100); NON-HDL-C 175 MG/DL; POTASSIUM SERUM 4.3 MEQ/L (3.5-5.1); SODIUM LEVEL 140 MEQ/L (136-145); TOTAL PROTEIN 6.8 GM/DL (6.4-8.2); TRIGLYCERIDES LEVEL 151 MG/DL (<150)
== END ==
LOC: M WUC 09:26
PROVIDERS: ATTEND Nurse Practitioner Family
DX: Z00.00 Encounter for general adult medical examination without abnormal findings (principal)

== ENCOUNTER → 2022-01-05 | Outpatient (CLI) | payer BC ==
[2022-01-05 14:41] LABS: ALBUMIN 3.6 GM/DL (3.2-5.2); ALT/SGPT 22 U/L (12-78); BILIRUBIN,TOTAL 0.6 MG/DL (0.2-1.0); BLOOD UREA NITROGEN 16 MG/DL (7-18); CALCIUM LEVEL 9.5 MG/DL (8.5-10.1); CARBON DIOXIDE LEVEL 25 MEQ/L (21-32); CHLORIDE LEVEL 110 MEQ/L (98-107); CHOLESTEROL LEVEL 185 MG/DL (<200); CHOLESTEROL RISK RATIO 2.983 (<5); CREATININE FOR GFR 0.83 MG/DL (0.55-1.30); FREE T4 0.87 NG/DL (0.76-1.46); GLOMERULAR FILTRATION RATE > 60.0 (>58); GLUCOSE, FASTING 93 MG/DL (70-100); HDL CHOLESTEROL 62 MG/DL (>40); LDL CHOLESTEROL 101 MG/DL (<100); NON-HDL-C 123 MG/DL; POTASSIUM SERUM 4.4 MEQ/L (3.5-5.1); SODIUM LEVEL 141 MEQ/L (136-145); TOTAL PROTEIN 6.6 GM/DL (6.4-8.2); TRIGLYCERIDES LEVEL 109 MG/DL (<150)
[2022-01-05 15:17] LABS: TOTAL 25(OH) VITAMIN D 30.6 NG/ML (30.0-100.0)
== END ==
LOC: M PLALAB 09:02
PROVIDERS: ATTEND Nurse Practitioner Family
DX: E78.5 Hyperlipidemia, unspecified (principal); R63.5 Abnormal weight gain

== ENCOUNTER → 2023-02-10 | Outpatient (CLI) | payer BC ==
[2023-02-10 11:33] LABS: ALBUMIN 3.7 G/DL (3.2-5.2); ALKALINE PHOSPHATASE 44 U/L (46-116); ALT/SGPT 17 U/L (7.0-40); AST/SGOT 20 U/L (<34); BILIRUBIN,TOTAL 0.3 MG/DL (0.3-1.2); BLOOD UREA NITROGEN 14 MG/DL (9-23); CALCIUM LEVEL 9.3 MG/DL (8.5-10.1); CARBON DIOXIDE LEVEL 27 MMOL/L (20-31); CHLORIDE LEVEL 106 MMOL/L (98-107); CHOLESTEROL LEVEL 166 MG/DL (<200); CHOLESTEROL RISK RATIO 2.86 (<5); CREATININE FOR GFR 0.86 MG/DL (0.55-1.30); GLOMERULAR FILTRATION RATE > 60.0 (>58); GLUCOSE, FASTING 81 MG/DL (60-100); HDL CHOLESTEROL 57.9 MG/DL (>40); LDL CHOLESTEROL 86.1 MG/DL (<100); NON-HDL-C 108.1 MG/DL; POTASSIUM SERUM 4.9 MMOL/L (3.5-5.1); SODIUM LEVEL 139 MMOL/L (136-145); TOTAL PROTEIN 6.2 G/DL (5.7-8.2); TRIGLYCERIDES LEVEL 110 MG/DL (<150)
== END ==
LOC: M PLALAB 08:49
PROVIDERS: ATTEND Nurse Practitioner Family
DX: E78.5 Hyperlipidemia, unspecified (principal)

== ENCOUNTER → 2023-03-31 | Outpatient (REF) | payer BC | LOC: M SFHCWAGY 12:57 | PROVIDERS: ATTEND Nurse Practitioner Family | DX: Z12.4 Encounter for screening for malignant neoplasm of cervix (principal); R87.611 Atypical squamous cells cannot exclude high grade squamous intraepithelial lesion on cytologic smear of cervix (ASC-H) ==

== ENCOUNTER → 2023-03-31 | Outpatient (CLI) | payer BC | LOC: M WHC 10:36 | PROVIDERS: ATTEND Nurse Practitioner Family | DX: Z12.31 Encounter for screening mammogram for malignant neoplasm of breast (principal) ==

== ENCOUNTER → 2023-12-03 | Outpatient (CLI) | payer BC ==
[2023-12-03 11:25] LABS: BASO # 0.1 10^3/uL (0.0-0.2); BASO % 1.3 % (0.0-1.0); EOS # 0.3 10^3/uL (0.0-0.5); EOS % 5.3 % (0.0-3.0); HEMATOCRIT 41.2 % (36.0-47.0); HEMOGLOBIN 13.9 g/dl (12.0-15.5); LYMPH # 1.7 10^3/uL (1.5-5.0); MEAN CORPUSCULAR HEMOGLOBIN 32.6 pg (27.0-33.0); MEAN CORPUSCULAR HGB CONC 33.7 g/dl (32.0-36.5); MEAN CORPUSCULAR VOLUME 96.7 fl (80.0-96.0); MONO # 0.5 10^3/uL (0.0-0.8); MONO % 8.4 % (2.0-8.0); PLATELET COUNT, AUTOMATED 177 10^3/uL (150-450); RED BLOOD COUNT 4.26 10^6/uL (4.00-5.40); WHITE BLOOD COUNT 5.5 10^3/uL (4.0-10.0)
[2023-12-03 11:55] LABS: ALBUMIN 3.8 G/DL (3.2-5.2); ALKALINE PHOSPHATASE 43 U/L (46-116); ALT/SGPT 18 U/L (7.0-40); AST/SGOT 32 U/L (<34); BILIRUBIN,TOTAL 0.5 MG/DL (0.3-1.2); BLOOD UREA NITROGEN 23 MG/DL (9-23); CALCIUM LEVEL 9.3 MG/DL (8.5-10.1); CARBON DIOXIDE LEVEL 28 MMOL/L (20-31); CHLORIDE LEVEL 106 MMOL/L (98-107); CHOLESTEROL LEVEL 161 MG/DL (<200); CHOLESTEROL RISK RATIO 3.07 (<5); CREATININE FOR GFR 0.83 MG/DL (0.55-1.30); FREE T4 1.17 NG/DL (0.89-1.76); GLOMERULAR FILTRATION RATE > 60.0 (>58); GLUCOSE, FASTING 84 MG/DL (60-100); HDL CHOLESTEROL 52.4 MG/DL (>40); LDL CHOLESTEROL 92.8 MG/DL (<100); NON-HDL-C 108.6 MG/DL; POTASSIUM SERUM 5.2 MMOL/L (3.5-5.1); SODIUM LEVEL 140 MMOL/L (136-145); THYROID STIMULATING HORMONE 2.199 uIU/ML (0.55-4.78); TOTAL PROTEIN 6.8 G/DL (5.7-8.2); TRIGLYCERIDES LEVEL 79 MG/DL (<150)
== END ==
LOC: M WUC 08:07
PROVIDERS: ATTEND Nurse Practitioner Family
DX: Z00.00 Encounter for general adult medical examination without abnormal findings (principal); E78.5 Hyperlipidemia, unspecified

== ENCOUNTER → 2024-04-04 | Outpatient (CLI) | payer BC | LOC: M WHC 11:44 | PROVIDERS: ATTEND Nurse Practitioner Family | DX: Z12.31 Encounter for screening mammogram for malignant neoplasm of breast (principal) ==

== ENCOUNTER → 2024-04-04 | Outpatient (REF) | payer BC ==
[2024-04-07 17:48] LABS: HPV APTIMA Not Detected (Not Detected)
== END ==
LOC: M SFHCWAGY 14:58
PROVIDERS: ATTEND Nurse Practitioner Family
DX: Z12.4 Encounter for screening for malignant neoplasm of cervix (principal); Z11.51 Encounter for screening for human papillomavirus (HPV); R87.610 Atypical squamous cells of undetermined significance on cytologic smear of cervix (ASC-US)

== ENCOUNTER 2024-07-20 07:45 | Outpatient (RCR) | payer BC | END 2024-07-27 | LOC: M PT 07:45 | PROVIDERS: ATTEND Nurse Practitioner Family | DX: N39.3 Stress incontinence (female) (male) (principal) ==

== ENCOUNTER 2024-08-17 07:45 | Outpatient (RCR) | payer BC | END 2024-08-26 | LOC: M PT 07:45 | PROVIDERS: ATTEND Nurse Practitioner Family | DX: N39.3 Stress incontinence (female) (male) (principal) ==

== ENCOUNTER 2024-09-15 08:30 | Outpatient (RCR) | payer BC | END 2024-09-26 | LOC: M PT 08:30 | PROVIDERS: ATTEND Nurse Practitioner Family | DX: N39.3 Stress incontinence (female) (male) (principal) ==

== ENCOUNTER 2024-10-05 08:29 | Outpatient (RCR) | payer BC | END 2024-10-27 | LOC: M PT 08:29 | PROVIDERS: ATTEND Nurse Practitioner Family | DX: N39.3 Stress incontinence (female) (male) (principal) ==

== ENCOUNTER 2024-10-30 07:42 | Outpatient (RCR) | payer BC | END 2024-11-24 | LOC: M PT 07:42 | PROVIDERS: ATTEND Nurse Practitioner Family | DX: N39.3 Stress incontinence (female) (male) (principal) ==

== ENCOUNTER → 2024-12-07 | Outpatient (CLI) | payer BC ==
[2024-12-07 14:49] LABS: BASO # 0.1 10^3/uL (0.0-0.2); EOS # 0.3 10^3/uL (0.0-0.5); EOS % 4.3 % (0.0-3.0); HEMATOCRIT 39.2 % (36.0-47.0); LYMPH # 1.8 10^3/uL (1.5-5.0); LYMPH % 29.5 % (24.0-44.0); MEAN CORPUSCULAR HEMOGLOBIN 31.8 pg (27.0-33.0); MEAN CORPUSCULAR HGB CONC 33.2 g/dl (32.0-36.5); MEAN CORPUSCULAR VOLUME 95.8 fl (80.0-96.0); MONO # 0.5 10^3/uL (0.0-0.8); MONO % 8.6 % (2.0-8.0); NEUTROPHILS # 3.4 10^3/uL (1.5-8.5); NEUTROPHILS % 56.3 % (36.0-66.0); PLATELET COUNT, AUTOMATED 189 10^3/uL (150-450); RED BLOOD COUNT 4.09 10^6/uL (4.00-5.40)
[2024-12-07 15:18] LABS: ALBUMIN 3.5 G/DL (3.2-5.2); ALKALINE PHOSPHATASE 46 U/L (35-104); ALT/SGPT 17 U/L (7.0-40); AST/SGOT 16 U/L (<34); BILIRUBIN,TOTAL 0.4 MG/DL (0.3-1.2); BLOOD UREA NITROGEN 22 MG/DL (9-23); CALCIUM LEVEL 9.2 MG/DL (8.5-10.1); CARBON DIOXIDE LEVEL 29 MMOL/L (20-31); CHLORIDE LEVEL 107 MMOL/L (98-107); CHOLESTEROL LEVEL 178 MG/DL (<200); CHOLESTEROL RISK RATIO 2.68 (<5); CREATININE FOR GFR 0.75 MG/DL (0.55-1.30); FREE T4 1.13 NG/DL (0.89-1.76); GLOMERULAR FILTRATION RATE > 60.0 (>51); GLUCOSE, FASTING 87 MG/DL (60-100); HDL CHOLESTEROL 66.4 MG/DL (>40); LDL CHOLESTEROL 100.2 MG/DL (<100); NON-HDL-C 111.6 MG/DL; POTASSIUM SERUM 4.2 MMOL/L (3.5-5.1); SODIUM LEVEL 142 MMOL/L (136-145); THYROID STIMULATING HORMONE 1.664 uIU/ML (0.55-4.78); TOTAL PROTEIN 6.3 G/DL (5.7-8.2); TRIGLYCERIDES LEVEL 57 MG/DL (<150)
== END ==
LOC: M WUC 09:11
PROVIDERS: ATTEND Nurse Practitioner Family
DX: Z00.00 Encounter for general adult medical examination without abnormal findings (principal); E78.5 Hyperlipidemia, unspecified

== ENCOUNTER → 2025-05-08 | Outpatient (REF) | payer BC ==
[2025-05-10 14:19] LABS: HPV APTIMA Not Detected (Not Detected)
== END ==
LOC: M SFHCWAGY 14:42
PROVIDERS: ATTEND Nurse Practitioner Family
DX: R87.615 Unsatisfactory cytologic smear of cervix (principal); R87.610 Atypical squamous cells of undetermined significance on cytologic smear of cervix (ASC-US)
CPT/HCPCS: 87624; G0123